=== PATIENT | female | born 1970 | race Caucasian/White ===

== ENCOUNTER → 2019-03-05 | Outpatient (CLI) | payer OTHER ==
[~2019-03-05] MED LIST: ACETAMINOPHEN-1 EACH; CELEBREX 200 M200 MG PO; HYDROCODON-ACE1 EAC7 PO; IBUPROFEN 200200 M1 PO; MAXALT MLT ODT10 MG PO; ORPHENADRINE C100 M2 PO; TOPAMAX50 MG PO; TRAMADOL 50 MG50 MG; TRAMADOL 50 MG50 MG PO
== END ==
LOC: CAT 11:42
DX: R10.31 Right lower quadrant pain (principal)

== ENCOUNTER → 2019-04-24 | Outpatient (CLI) | payer OTHER | LOC: RAD 08:41 | DX: M79.671 Pain in right foot (principal) ==

== ENCOUNTER → 2020-11-03 | Outpatient (CLI) | payer OTHER | LOC: LAB 09:20 | PROVIDERS: ATTEND Nurse Practitioner | DX: U07.1 COVID-19 (principal) ==